=== PATIENT | male | born 1960 | race Two or more races ===

== ENCOUNTER 2024-11-07 09:30 | Outpatient (RCR) | payer MEDICAID, SELFPAY ==
--- NOTE | 2024-11-02 09:13 | PT.OIERPT ---
PT OP Initial Eval Patient Information Outpatient Physical Therapy Treatment Date: 11/02/24 Visit Reasons: right shoulder pain Medical Diagnosis: Right Shoulder Pain Treatment Dx #1: Right Shoulder Pain Treatment Dx #2: Right Shoulder Mobility Deficits Start of Care: 11/02/24 Date of Onset: 1 year ago Smoking Status Smoking Status: Never smoker Initial Assessment Subjective: Pt is a 64 y/o female reports of chronic right shoulder pain (04/17) started ~ 1 year ago. Pt mentioned xray showed arthritis no MRI has been done. Pt has limitation with lifting, overhead motions, chores, self care, cooking, cleaning, and performing recreational activities. Objective: Right Shoulder PROM: all motions are WFL with pain in all plane Right Shoulder AROM Flexion: 90 deg Abduction: 90 deg ER and IR: NT Right Shoulder MMTs: grossly 3-/5 Right Scapula MMTs: grossly 3-/5 Special Test (+) drop arm test Palpation: TTP supraspinatus tendon Assessment: Pt demonstrate right shoulder pain and mobility deficits consistent with rotator cuff involvement leading to difficulty with ADLs. Pt will attempt physical therapy if pain persist Pt will be refer back to provider for further consultation. Short Term and Water Resource Specialist Goals 1) Increase right shoulder AROM WFL in 6 wks to be able to perform chores 2) Decrease shoulder pain to 2/10 in 6 wks to be able to sleep more than 6 hrs 3) Increase right shoulder MMTs grossly to 4-/5 in 6 wks to be able to perform lifting activities 4) Increase right scapula MMTs grossly to 4-/5 in 6 wks to be able to perform recreational activities 5) Indep with HEP Treatment Plan 1) Manual Therapy 2) Therapeutic Activities 3) Therapeutic Exercises 4) Modalities (ice, heat) Frequency and Duration: 2 x wk for 6 wks Certification Dates: 11/02/24 to 01/31/25 Procedure Charges OP PT Eval Mod Complex 30 minutes: Yes
--- NOTE | 2024-11-07 12:03 | PT.ODAYNRPT ---
PT Outpatient Daily Note OP Daily Note Outpatient Physical Therapy Treatment Date: 11/07/24 Visit Reasons: right shoulder pain Subjective: Pt' shoulder pain is worsening. Pt continues to have popping and grinding with overhead motions Objective: Please see flow chart for list of ther ex performed Assessment: difficulty completing PT session due to pain. Pt asked to stop the session short today. Pt decline post ice. Plan: Continue with PT Length of Time (minutes) of Treatment: 25 Minutes Procedure Charges Therapeutic Exercise 30 minutes: Yes
== END 2024-11-07 23:59 | disposition home or self-care (01) ==
LOC: CPTX 09:30
PROVIDERS: PCP Physician Assistant; Referring Provider Physician Assistant; Visit Provider Physician Assistant
DX: M25.511 Pain in right shoulder (principal); G89.29 Other chronic pain; M19.011 Primary osteoarthritis, right shoulder
CPT/HCPCS: 97110; 97162

== ENCOUNTER 2024-11-24 09:00 | Outpatient (RCR) | payer MEDICAID, SELFPAY ==
--- NOTE | 2024-11-14 08:50 | PT.ODAYNRPT ---
PT Outpatient Daily Note OP Daily Note Outpatient Physical Therapy Treatment Date: 11/14/24 Visit Reasons: Right shoulder pain Subjective: Pt's shoulder is about the same. No change in overall symptoms. Objective: Please see flow chart for list of ther ex performed Assessment: minimal progression with shoulder AROM due to pain. Pt continues to demonstrate pain up to 90 deg of flexion and abduction Plan: Continue with PT Length of Time (minutes) of Treatment: 30 Minutes Procedure Charges Therapeutic Exercise 30 minutes: Yes
--- NOTE | 2024-11-17 09:52 | PT.ODAYNRPT ---
PT Outpatient Daily Note OP Daily Note Outpatient Physical Therapy Treatment Date: 11/17/24 Visit Reasons: Right shoulder pain Subjective: Pt over stretch the shoulder yesterday and this morning it is hurting a little more Objective: Please see flow chart for list of ther ex performed Assessment: progressing with shoulder AROM, however, no change in pain Plan: Continue with PT Length of Time (minutes) of Treatment: 30 Minutes Procedure Charges Therapeutic Exercise 30 minutes: Yes
--- NOTE | 2024-11-21 08:59 | PT.ODAYNRPT ---
PT Outpatient Daily Note OP Daily Note Outpatient Physical Therapy Treatment Date: 11/21/24 Visit Reasons: Right shoulder pain Subjective: Pt c/o shoulder pain. Pt mentioned that he has been babying his shoulder due to increase pain with activity. Pt reports grinding sound and sensation with movement when trying to move or reach over head. Objective: Please see flow sheet for ther ex list. Assessment: Pt guarded due to aggravating symptoms with movement during AAROM. Pt can reach ~90 degrees of shoulder elevation during AAROm. Plan: Assess for DC note. Length of Time (minutes) of Treatment: 30 Minutes Procedure Charges Therapeutic Exercise 30 minutes: Yes
--- NOTE | 2024-11-24 09:10 | PTNOTE_ITS ---
PT OP Progress/Discharge Note Date of Service: 11/24/24 Progress Note/DC Note Progress Note/Discharge Note: DC Note Patient Information Visit Reasons: Right shoulder pain Medical Diagnosis: Right Shoulder Pain Treatment Dx #1: Right Shoulder Pain Service Discharge Date: 11/24/24 Status Subjective: Pt's shoulder feels like it's moving more, however, pain and catching has not stopped. Due to pain Pt has limitation with lifting, chores, self care, cooking, cleaning, and performing recreational activities. Pt will like to stop physical therapy and follow up with MD. Objective: Right Shoulder AROM Flexion: 140 deg Abduction: 90 deg ER and IR: unable due to pain Right Shoulder MMTs: grossly 3/5 Right Scapula MMTs: grossly 3/5 Palpation: TTP supraspinatus tendon Assessment: Pt demonstrate slight improvement with shoulder mobility and strength, however, no change in pain leading to difficulty with ADLs. Pt will no longer benefit fro m physical therapy due to minimal progression towards goals. Recommend shoulder MRI to help rule in/out nature of pain. Pt was instructed on HEP last session and educated to continue exercises to maintain overall mobility. Pt performed all exercises safely, thank you for your referrals. Plan: D/C home with HEP and follow up with MD Recommend shoulder MRI Procedure Charges Therapeutic Exercise 30 minutes: Yes
== END 2024-12-08 23:59 | disposition home or self-care (01) ==
LOC: CPTX 09:00
PROVIDERS: PCP Physician Assistant; Referring Provider Physician Assistant; Visit Provider Physician Assistant
DX: M25.511 Pain in right shoulder (principal); G89.29 Other chronic pain
CPT/HCPCS: 97110

== ENCOUNTER 2025-09-27 08:48 | Outpatient (RCR) | payer MEDICAID, SELFPAY ==
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
== END 2025-10-07 23:59 | disposition home or self-care (01) ==
LOC: CPTX 08:48
PROVIDERS: PCP Physician Assistant; Referring Provider Physician Assistant; Visit Provider Physician Assistant
DX: M54.15 Radiculopathy, thoracolumbar region (principal)
CPT/HCPCS: 97162

== ENCOUNTER 2025-10-24 10:30 | Outpatient (RCR) | payer MEDICAID, SELFPAY ==
--- NOTE | 2025-10-10 09:58 | PT.ODAYNRPT ---
PT Outpatient Daily Note OP Daily Note Outpatient Physical Therapy Treatment Date: 10/10/25 Visit Reasons: lOWER BACK PAIN Subjective: Pt reports LBP is ok today, today is a good day. Pt mentioned that he has increase pain and numbing sensation going down L LE with prolonged sitting. Objective: Please see flow sheet for ther ex list. Assessment: Pt demonstrates poor activity tolerance has to stand up and move around often during PT session due to increase LBP with activities. Plan: Continue with poC, assess response to treatment. Length of Time (minutes) of Treatment: 30 Minutes Procedure Charges Therapeutic Exercise 30 minutes: Yes
--- NOTE | 2025-10-15 11:59 | PT.ODAYNRPT ---
PT Outpatient Daily Note OP Daily Note Outpatient Physical Therapy Treatment Date: 10/15/25 Visit Reasons: lOWER BACK PAIN Subjective: Pt's back pain is better today. Pt continues to have intermittent pain which at times relate to activities. Objective: Please see flow chart for list of ther ex performed Assessment: advance patient to sitting neural floss and added more reps with standing lumbar extension with good tolerance. unable to finish 4th hip flexor stretch due to increase lower back pain due to standing position. Plan: Continue with PT Length of Time (minutes) of Treatment: 30 Minutes Procedure Charges Therapeutic Exercise 30 minutes: Yes
--- NOTE | 2025-10-17 11:49 | PT.ODAYNRPT ---
PT Outpatient Daily Note OP Daily Note Outpatient Physical Therapy Treatment Date: 10/17/25 Visit Reasons: lOWER BACK PAIN Subjective: Pt reports back continues to hurt and be painful. Objective: Please see flow sheet for ther ex list. Assessment: Pt demonstrates poor activity tolerance, c/o pain has to get up and walk in between exercises and reps. Plan: Continue with poC. Length of Time (minutes) of Treatment: 30 Minutes Procedure Charges Therapeutic Exercise 30 minutes: Yes
--- NOTE | 2025-10-22 14:26 | PT.ODAYNRPT ---
PT Outpatient Daily Note OP Daily Note Outpatient Physical Therapy Treatment Date: 10/22/25 Visit Reasons: lOWER BACK PAIN Subjective: Pt reports back continues to be painful. Objective: Please see flow sheet for ther ex list. Assessment: Progression intervention delayed due to pt pain response. Plan: Continue with poC. Length of Time (minutes) of Treatment: 30 Minutes Procedure Charges Therapeutic Exercise 30 minutes: Yes
--- NOTE | 2025-10-24 11:19 | PT.ODAYNRPT ---
PT Outpatient Daily Note OP Daily Note Outpatient Physical Therapy Treatment Date: 10/24/25 Visit Reasons: lOWER BACK PAIN Subjective: Pt reports LBP is worse today, mentioned that he was moving some things around in his home yesterday. Objective: Please see flow sheet for ther ex list. Assessment: Pt presents in clinic with c/o pain, does not tolerate laying in supine for long. Plan: Pt has one visit left, follow up with PTOR for note. Length of Time (minutes) of Treatment: 30 Minutes Procedure Charges Therapeutic Exercise 30 minutes: Yes
--- NOTE | 2025-10-29 12:46 | PT.ODS1RPT ---
PT OP Progress/Discharge Note Date of Service: 10/29/25 Progress Note/DC Note Progress Note/Discharge Note: DC Note Patient Information Visit Reasons: lOWER BACK PAIN Status Assessment: Pt has been seen for 6 visits (eval + 5 visits). Pt last treated on 10/24/25. At this time Pt will be d/c from care due to completing authorized 6 sessions. According to patient back pain has not improved significantly and will like to follow up with provider. Pt did not meet set goals in therapy; thank you for your referrals.
== END 2025-11-07 23:59 | disposition home or self-care (01) ==
LOC: CPTX 10:30
PROVIDERS: PCP Physician Assistant; Referring Provider Physician Assistant; Visit Provider Physician Assistant
DX: M54.15 Radiculopathy, thoracolumbar region (principal)
CPT/HCPCS: 97110